=== PATIENT | male | born 1960 | race Caucasian/White ===

== ENCOUNTER 2023-11-18 08:44 | Day surgery (SDC) | payer OTHER, SELFPAY ==
--- NOTE | 2023-10-31 12:58 | PC.NURSE ---
DR MARQUEZ ORDERED LAB WORK. PT STATES HE HAD BLOOD DRAWN AT ONCOLOGIST OFFICE OCT 27. WILL REACH OUT TO DR ALANIZ IN [place]
--- NOTE | 2023-10-31 13:10 | PC.NURSE ---
CALLED DR LAMB'S OFFICE, SPOKE WITH TEO RICHARDSON RN. SHE WILL FAX CBC, CMP, PT/PTT/INR RESULTS
--- NOTE | 2023-11-06 13:37 | SUR.PREOP ---
DR MARQUEZ'S OFFICE CALLED REGARDING PLATELET COUNT. DR MARQUEZ STATED OK TO PROCEED WITH EDIPURAL INJECTION ON 11/18/23
--- NOTE | ~2023-11-18 | XR_ITS ---
EXAMINATION: XR fluoroscopy no charge DATE: 11/18/2023 9:35 CDT INDICATION: RIGHTWARD C6-7 INTERLAMINAR EPI STEROID INJ . TECHNIQUE: 3 fluoroscopic images and 4 cine clips of the cervical spine were obtained during right C6 -7 interlaminar epidural steroid injection, performed by Vincent Justice MD. I was not present durin g the procedure. Fluoroscopy exposure time was 15.6 seconds. Air Kerma 8.10 mGy. COMPARISON: None FINDINGS/IMPRESSION: Fluoroscopic documentation of right C6-7 interlaminar epidural steroid injection. Please refer to the operative note for complete procedural details . Reviewed, dictated and finalized at location K.
--- NOTE | 2023-11-18 07:57 | WPDHPUPDATE1 ---
History and Physical Update Update Date/Time: 11/18/23 07:57 History and Physical has been reviewed, including an updated exam of the patient. There are NO changes in the patient's condition. Risks, benefits, and alternatives have been discussed and questions answered. Patient agrees to proceed with procedure.
--- NOTE | 2023-11-18 07:57 | W.PM.PROC2 ---
Procedure Note - Detailed Date of Procedure 11/18/23 Pre-op Diagnosis Cervical Radiculopathy, Cervical Spinal Stenosis Post-op Diagnosis Same Procedure Performed Rightward Cervical Interlaminar Epidural Steroid Injection at C6-7 under Fluoroscopic Guidance and with Contrast Control. Surgeon Vincent Justice MD Anesthesia Local Description of Procedure INFORMED CONSENT: Risks, benefits and alternatives to the procedure were discussed in detail with the patient who expressed explicit understanding and consent to proceed. Patient was informed verbally and in written form regarding the risks associated with the procedure including the low risk of serious infection, bleeding/bruising, allergic reaction, nerve or organ injury, paralysis, procedural site pain or discomfort, worsening pain and/or mobility, failure to treat and/or disfigurement. The patient expressed explicit understanding and consent to proceed. All materials required for the procedure were available prior to procedure start. Site and side was marked prior to procedure and confirmed in the presence of the patient. PROCEDURE IN DETAIL: The patient was brought to the procedural suite and placed in the prone position. Patient's head was positioned and stabilized with a ProneView pillow or equivalent. Patient was made comfortable with use of pillows under the chest, hips and ankles. Skin overlying the injection site was prepared broadly with ChloraPrep applicator and draped in a sterile manner. Aseptic technique was employed throughout. The endplates of the vertebral body at the site of interest were aligned in the AP view. Slight caudad tilt and ipsilateral oblique angulation was utilized to optimize visualization of the targeted posterior intervertebral foramen at C6-7. Local anesthesia was established by infiltration with approximately 5 mL of 2% lidocaine via a 1-1/2 inch 27-gauge needle. A 20-gauge 4-inch Tuohy epidural needle was advanced intermittently until appropriate loss of resistance to air was identified via plastic loss of resistance syringe. Lateral view was used to confirm the appropriate positioning of the needle tip within the posterior epidural space. [In the AP view, 2.0 mL of Omnipaque 300 contrast medium was injected after negative aspiration for CSF, blood or other bodily fluid, showing appropriate epidural spread of contrast without evidence of intravascular or intrathecal placement.] After negative repeat aspiration for CSF, blood or other bodily fluid, A 4 mL solution containing 6 mg of betamethasone in sterile PF Normal Saline was injected after negative repeat aspiration. Appropriate spread of the injectate was confirmed with washout of previously injected contrast. No parasthesias were elicited. Needle was removed completely intact without difficulty. Images were saved and documented in the patient chart. Patient's skin was cleansed and sterile bandage applied. The patient tolerated the procedure well. The patient was transported to the recovery area in stable condition where they were observed for an appropriate amount of time prior to discharge, without evidence of complication. The patient was instructed to avoid excessive activity for the next 48 hours, including overhead work, reaching or extended device/computer usage. Showers only for 48 hours. They were instructed not to drive or operate heavy machinery for 24 hours. They are to monitor for severe headaches, fevers, chills, night sweats, erythema/swelling at the site or any other signs of infection, bleeding/bruising, bowel or bladder changes as well as new pain, weakness or numbness in the upper or lower extremity. Should they notice these changes, they are instructed to call our office immediately or report directly to the nearest Emergency Department if no answer or if after posted office hours. CONTRAST WASTED: 28mL Omnipaque 300. Complications No immediate complications Condition Stable Disposition Same day [facility]
[2023-11-18 09:20] VITALS: BP 130/89; PULSE 87; RESP 18; TEMP 36.3; O2SAT 100
[2023-11-18 09:43] VITALS: BP 143/87; PULSE 82; RESP 18; O2SAT 99
[2023-11-18] MEDS: BETAMETHASONE SODIUM PHOSPHATE PF INJ 6 MG/ML VIAL INFILTRATE (09:43)
[2023-11-18] MEDS: LIDOCAINE HCL 1% PF INJ 5 ML VIAL 2 ML INFILTRATE (09:43)
[2023-11-18 09:47] VITALS: BP 140/90; PULSE 89; RESP 18; O2SAT 99
[2023-11-18 09:55] VITALS: BP 127/83; PULSE 86; RESP 20; O2SAT 100
== END 2023-11-18 10:12 | disposition home or self-care (01) ==
PROVIDERS: PCP Internal Medicine; Visit Provider Anesthesiology Pain Medicine
PROC: (CPT 62321; principal; 2023-11-18 10:00)
DX: M48.02 Spinal stenosis, cervical region (principal); M54.12 Radiculopathy, cervical region
CPT/HCPCS: 62321; 99199